=== PATIENT | male | born 1995 ===

== ENCOUNTER 2017-10-11 22:14 | Emergency (ER) | payer OTHER ==
[2017-10-11 22:44] VITALS: BP 122/64; PULSE 108; RESP 18; TEMP 98.9; O2SAT 97
--- NOTE | 2017-10-11 23:51 | ED PDOC ---
Lower Extremity Pain/Injury Time Seen by Provider: 10/11/17 22:26 Chief Complaint (Nursing): Lower Extremity Problem/Injury Chief Complaint (Provider): Left foot pain, crush injury History Per: Patient History/Exam Limitations: no limitations Onset/Duration Of Symptoms: Mins Current Symptoms Are (Timing): Still Present Severity: Moderate Pain Scale Rating Of: 5 Additional Complaint(s): Pt states he was using a wendy at work and it slipped crushing his left foot. PT reports swelling and pain. Pt denies numbness/tingling. No similar in the past. Past Medical History Reviewed: Historical Data, Nursing Documentation, Vital Signs Vital Signs: Last Vital Signs Temp 98.9 F 10/11/17 22:43 Pulse 108 H 10/11/17 22:43 Resp 18 10/11/17 22:43 BP 122/64 10/11/17 22:43 Pulse Ox 97 10/11/17 22:43 - Medical History PMH: No Chronic Diseases - Surgical History Surgical History: No Surg Hx - Family History Family History: States: No Known Family Hx - Living Arrangements Living Arrangements: With Family - Social History Current smoker - smoking cessation education provided: No - Home Medications Home Medications: Ambulatory Orders Medication Instructions Recorded Acetaminophen [Acetaminophen Extra 1,000 mg PO BID #40 tablet 10/11/17 Strength] Ibuprofen [Motrin Tab] 800 mg PO BID PRN #20 tab 10/11/17 - Allergies Allergies/Adverse Reactions: Allergies Allergy/AdvReac Type Severity Reaction Status Date / Time No Known Allergies Allergy Verified 10/11/17 22:48 - ECG O2 Sat by Pulse Oximetry: 97 Disposition - Clinical Impression Clinical Impression: Metatarsal bone fracture - Patient ED Disposition Is Patient to be Admitted: No Counseled Patient/Family Regarding: Diagnosis, Need For Followup, Rx Given - Disposition Referrals: [facility] [Outside] Disposition: Routine/Home Disposition Time: 23:52 Condition: GOOD Additional Instructions: Please ask for podiatry clinic or clinic which specializes in feet. Also inform them you are calling to see Dr. Nye in the clinic at [facility]. Prescriptions: Acetaminophen [Acetaminophen Extra Strength] 1,000 mg PO BID #40 tablet Ibuprofen [Motrin Tab] 800 mg PO BID PRN #20 tab PRN Reason: Pain Instructions: Foot Fracture in Adults (ED) Print Language: DIVEHI
--- NOTE | 2017-10-12 00:17 | CP.PCM.CON ---
History of Present Illness - History of Present Illness History of Present Illness: 22 year old male seen at bedside after suffering work place trauma earlier this evening. While loading pallets one fell on top of foot. Pt was able to bear wieght immediately after though reports it became more painful and difficult as time went on due to swelling. Pt reports pain and swellling remains localized to forefoot. Pt grades current pain level a 4/10. Pt has no other pedal complaints. Pt denies recent f/c/cp/sob/n/v, dizzyness. PMH: Denies remarkable medical history. PSH: Pt denies surgical history All: NKDA> Review of Systems - Review of Systems All systems: reviewed and no additional remarkable complaints except Past Patient History - Past Social History Smoking Status: Former Smoker - PSYCHIATRIC Hx Substance Use: No - SURGICAL HISTORY Hx Surgeries: No - ANESTHESIA Hx Anesthesia: No Meds Home Medications: Home Medication List Medication Instructions Recorded Confirmed Type Acetaminophen [Acetaminophen Extra 1,000 mg PO BID #40 tablet 10/11/17 Rx Strength] Ibuprofen [Motrin Tab] 800 mg PO BID PRN #20 tab 10/11/17 Rx Allergies/Adverse Reactions: Allergies Allergy/AdvReac Type Severity Reaction Status Date / Time No Known Allergies Allergy Verified 10/11/17 22:48 Physical Exam - Constitutional Appears: Well, Non-toxic, No Acute Distress - Extremities Exam Additional comments: Left lower extremity focused. Vasc: DP/PT pulses palpable 2/4 b/l. Skin temperature runs warm to warm from proximal to distal, within normal limits. CFT < 3 seconds to all digits b/l. Pedal hair growth appreciated. Neuro: Epicritic and protective sensation grossly intact. Derm: Dorsal central forefoot noted to have mild ecchymosis. This stie is absent erythema and acute signs of infection. No open lesions, macerations, xerosis, or abnormal growths noted. MSK: Non-pitting edema noted to central forefoot. Tenderness to palpation along 2nd and 3rd metatarsal head region. Pedal muscle strenght graded 5/5 on inversion, eversion, dorsiflexion and plantarflexion of foot. Pt has limited 2nd and 3rd digit MTPJ ROM secondary to guarding and swelling. - Neurological Exam Neurological exam: Alert, Oriented x3 - Psychiatric Exam Psychiatric exam: Normal Affect, Normal Mood Results - Vital Signs Recent Vital Signs: Last Vital Signs Temp 98.9 F 10/11/17 22:43 Pulse 108 H 10/11/17 22:43 Resp 18 10/11/17 22:43 BP 122/64 10/11/17 22:43 Pulse Ox 97 10/11/17 23:57 Assessment & Plan - Assessment and Plan (Free Text) Assessment: 22 year old male woth left 3rd metatarsal incomplete nondisplaced neck fracture Plan: Pt seen and evaluated. Chart labs, and vitals reviewed. Discussed with attending, Dr Howell, who endorsed the following plan X-rays reviewed. Pt to remain nonweight bearing to left foot in posterior splint. Analgesic control via Ibuprofen and tylenol. Pt to followup with Dr. Howell in [facility] Podiatry clinic within 10 days for potential transition to post-op shoe. Pt verbalized understanding of above. - Date & Time Date: 10/12/17 Time: 11:45
--- NOTE | 2017-10-12 10:07 | RAD ---
PROCEDURE: Left Foot Radiographs. HISTORY: left foot pain, crush injury COMPARISON: None. FINDINGS: BONES: There is a questionable fracture of the distal metaphysis of the 3rd metatarsal bone. This seen in frontal and oblique views only. 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 JOINTS: Normal. SOFT TISSUES: Prominent forefoot dorsal greater than plantar soft tissue edema identified. OTHER FINDINGS: None. IMPRESSION: There is a questionable fracture of the distal metaphysis of the 3rd metatarsal bone. Clinically correlate further. Prominent dorsal soft edema is seen.
== END 2017-10-12 00:14 | disposition home or self-care (01) ==
LOC: H.ER 22:14
DX: S92.302A Fracture of unspecified metatarsal bone(s), left foot, initial encounter for closed fracture (principal); W23.0XXA Caught, crushed, jammed, or pinched between moving objects, initial encounter; Y99.0 Civilian activity done for income or pay; Z87.891 Personal history of nicotine dependence

== ENCOUNTER 2017-10-14 18:55 | Emergency (ER) | payer OTHER ==
[2017-10-14 19:25] VITALS: BP 127/77; PULSE 78; RESP 20; TEMP 98.6; O2SAT 100
--- NOTE | 2017-10-14 19:44 | ED PDOC ---
Lower Extremity Pain/Injury Time Seen by Provider: 10/14/17 19:36 Chief Complaint (Nursing): Lower Extremity Problem/Injury Chief Complaint (Provider): Bleeding from splint History Per: Patient History/Exam Limitations: no limitations Onset/Duration Of Symptoms: Days (x1) Current Symptoms Are (Timing): Still Present Additional Complaint(s): Mehrdad Akhtar is a 22 y/o male who presents for evaluation of bleeding from under his splint located on his left foot. Denies any associated pain, numbness, or paresthesias. Patient reports he initially injured the foot after a pallet fell on top of it while at work. He was seen here on 10/11/17, diagnosed with left 3rd metatarsal nondisplaced neck fracture, and placed in a posterior splint with crutches given after podiatry evaluation. Today, when he reached into the splint he noticed blood on the foot. He denies any blood on his finger after reaching under the splint. He notes he called the number given to him to follow up with the podiatry clinic in [place], but states no one answered. PMD: None Past Medical History Reviewed: Historical Data, Nursing Documentation, Vital Signs Vital Signs: Last Vital Signs Temp 98.6 F 10/14/17 19:23 Pulse 78 10/14/17 19:23 Resp 20 10/14/17 19:23 BP 127/77 10/14/17 19:23 Pulse Ox 100 10/14/17 19:23 - Medical History PMH: No Chronic Diseases - Surgical History Surgical History: No Surg Hx - Family History Family History: States: Unknown Family Hx - Social History Ex-Smoker (has not smoked in the last 12 months): No - Home Medications Home Medications: Ambulatory Orders Medication Instructions Recorded Acetaminophen [Acetaminophen Extra 1,000 mg PO BID #40 tablet 10/11/17 Strength] Ibuprofen [Motrin Tab] 800 mg PO BID PRN #20 tab 10/11/17 - Allergies Allergies/Adverse Reactions: Allergies Allergy/AdvReac Type Severity Reaction Status Date / Time No Known Allergies Allergy Verified 10/11/17 22:48 Review of Systems ROS Statement: Except As Marked, All Systems Reviewed And Found Negative Musculoskeletal: Positive for: Other (Blood from splint). Negative for: Foot Pain Neurological: Negative for: Numbness (or paresthesia) Physical Exam - Reviewed Nursing Documentation Reviewed: Yes Vital Signs Reviewed: Yes - Physical Exam Appears: Positive for: Well, Non-toxic, No Acute Distress Head Exam: Positive for: ATRAUMATIC, NORMAL INSPECTION, NORMOCEPHALIC Skin: Positive for: Normal Color, Warm, Dry Eye Exam: Positive for: Normal appearance Extremity: Positive for: Other (Posterior splint in place on left lower extremity. Small blister noted at the dorsum of the 2nd metatarsal region, with no bleeding noted. (+) edema over the dorsum of the foot with scattered ecchymosis ). Negative for: Tenderness Neurologic/Psych: Positive for: Alert, Oriented (x3) - ECG O2 Sat by Pulse Oximetry: 100 (RA) Pulse Ox Interpretation: Normal Medical Decision Making Medical Decision Making: Time: 19:55 Initial Plan: --Paged podiatry for consult Case discussed with Dr. Mandy Astorga, podiatry resident, who requests splint be removed. Splint removed. No blood or open wounds noted to the left foot. Small blister noted on dorsum of foot between 1st and 2nd metatarsals. She advises posterior orthoglass splint be replaced and patient follow up with podiatry clinic in as instructed. Phone number provided: [phone]. Posterior orthoglass splint placed by VIANNEY. Patient instructed to f/u with podiatry clinic as instructed. Phone number provided. He expresses understanding and agreement. Scribe Attestation: Documented by Jennifer Bear, acting as a scribe for Naida Smith PA-C Provider Scribe Attestation: All medical record entries made by the Scribe were at my direction and personally dictated by me. I have reviewed the chart and agree that the record accurately reflects my personal performance of the history, physical exam, medical decision making, and the department course for this patient. I have also personally directed, reviewed, and agree with the discharge instructions and disposition. Procedures - Splinting Splint: posterior orthoglass splint. Disposition - Clinical Impression Clinical Impression: Metatarsal fracture - Patient ED Disposition Is Patient to be Admitted: No Counseled Patient/Family Regarding: Diagnosis, Need For Followup, Rx Given - Disposition Referrals: Lyndsay Nye DPM [Staff Provider] - Disposition: Routine/Home Disposition Time: 20:49 Condition: STABLE Additional Instructions: Follow up with podiatry clinic. [phone]. Instructions: Foot Fracture in Adults (ED) Forms: [facility] (Icelandic) Print Language: ROMANSH
== END 2017-10-14 21:12 | disposition home or self-care (01) ==
LOC: H.ER 18:55
DX: Z47.89 Encounter for other orthopedic aftercare (principal)

== ENCOUNTER 2018-06-27 14:56 | Day surgery (SDC) | payer OTHER ==
--- NOTE | 2018-06-27 15:21 | ED PDOC ---
HPI: Abdomen Time Seen by Provider: 06/27/18 15:13 Chief Complaint (Nursing): Abdominal Pain Chief Complaint (Provider): Abdominal Pain History Per: Patient History/Exam Limitations: no limitations Onset/Duration Of Symptoms: Days (x2) Current Symptoms Are (Timing): Still Present Additional Complaint(s): 23 y/o male with no significant PMHx presenting for evaluation of abdominal pain x2 days. Patient states pain began yesterday and has been constant. He reports pain is present in the entire abdominal area as well as multiple episodes of vomiting. He denies any fever, chills, chest pain, shortness of breath, cough, back pain, dietary changes, dysuria, hematuria, retention, frequency, testicular pain or diarrhea. PMD: None Past Medical History Reviewed: Historical Data, Nursing Documentation, Vital Signs Vital Signs: Last Vital Signs Temp 99.4 F 06/27/18 15:49 Pulse 89 06/27/18 15:03 Resp 16 06/27/18 15:03 BP 116/64 06/27/18 15:03 Pulse Ox 100 06/27/18 16:53 - Medical History PMH: No Chronic Diseases - Surgical History Surgical History: No Surg Hx - Family History Family History: States: Unknown Family Hx - Home Medications Home Medications: Ambulatory Orders Medication Instructions Recorded Acetaminophen [Acetaminophen Extra 1,000 mg PO BID #40 tablet 10/11/17 Strength] Ibuprofen [Motrin Tab] 800 mg PO BID PRN #20 tab 10/11/17 - Allergies Allergies/Adverse Reactions: Allergies Allergy/AdvReac Type Severity Reaction Status Date / Time No Known Allergies Allergy Verified 10/11/17 22:48 Review of Systems ROS Statement: Except As Marked, All Systems Reviewed And Found Negative Constitutional: Negative for: Fever, Chills Cardiovascular: Negative for: Chest Pain Respiratory: Negative for: Cough, Shortness of Breath Gastrointestinal: Positive for: Nausea, Vomiting, Abdominal Pain. Negative for : Diarrhea Genitourinary Male: Negative for: Dysuria, Frequency, Incontinence, Hematuria, Scrotal Pain Physical Exam - Reviewed Nursing Documentation Reviewed: Yes Vital Signs Reviewed: Yes - Physical Exam Appears: Positive for: Non-toxic, No Acute Distress Head Exam: Positive for: ATRAUMATIC, NORMAL INSPECTION, NORMOCEPHALIC Skin: Positive for: Normal Color, Warm, Dry. Negative for: Rash Eye Exam: Positive for: EOMI, Normal appearance, PERRL ENT: Positive for: Normal ENT Inspection Neck: Positive for: Normal, Painless ROM, Supple Cardiovascular/Chest: Positive for: Regular Rate, Rhythm. Negative for: Murmur Respiratory: Positive for: Normal Breath Sounds. Negative for: Respiratory Distress Gastrointestinal/Abdominal: Positive for: Soft, Tenderness (mild diffuse tenderness) Back: Positive for: Normal Inspection. Negative for: L CVA Tenderness, R CVA Tenderness, Vertebral Tenderness Extremity: Positive for: Normal ROM. Negative for: Pedal Edema, Deformity Neurologic/Psych: Positive for: Alert, Oriented (x3). Negative for: Motor/ Sensory Deficits - Laboratory Results Result Diagrams: 06/27/18 15:30 06/27/18 15:30 Interpretation Of Abn Labs: 18.6 wbc, 3.5 k - ECG O2 Sat by Pulse Oximetry: 100 (RA) Pulse Ox Interpretation: Normal - Progress ED Course And Treament: 1921: Stable. Spoke with Dr. Lu. Will consult. Spoke with Dr. Pizano. Will admit and give further orders when pt. reaches floor. Medical Decision Making Medical Decision Makin:25 Impression: Abdominal pain Plan: -CT abdomen and pelvis w/ IV contrast -CMP -Lipase -Urine dip -CBC w/ differential -PTT/PT -1LNS -Iohexol 50ml PO -Toradol 15mg IVP -Zofran 4mg IV -Reevaluation Scribe Attestation: Documented by Amari Kidd, acting as a scribe for Mike Augustine MD. Provider Scribe Attestation: All medical record entries made by the Scribe were at my direction and personally dictated by me. I have reviewed the chart and agree that the record accurately reflects my personal performance of the history, physical exam, medical decision making, and the department course for this patient. I have also personally directed, reviewed, and agree with the discharge instructions and disposition. Disposition - Clinical Impression Clinical Impression: Appendicitis - Patient ED Disposition Is Patient to be Admitted: Yes Counseled Patient/Family Regarding: Studies Performed, Diagnosis - Disposition Disposition Time: 19:23 Condition: FAIR - Pt Status Changed To: Hospital Disposition Of: Inpatient - Admit Certification Admit to Inpatient:: After my assessment, the patient will require hospitalization for at least two midnights. This is because of the severity of symptoms shown, intensity of services needed, and/or the medical risk in this patient being treated as an outpatient. - POA Present On Arrival: None
[2018-06-27] MEDS ORDERED: Sodium Chloride 0.9% 1,000 ML IV STA (15:23)
[2018-06-27] MEDS ORDERED: Iohexol 240 (50 ml) PO ONE (15:23)
[2018-06-27] MEDS ORDERED: Iohexol 240 (50 ml) ONE (15:35)
[2018-06-27 15:40] LABS: BASO % 0.2 % (0.0-2.0); EOS % 0.2 % (0.0-4.0); LYMPH # 0.9 K/uL (1.0-4.3); MEAN CELL VOLUME 85.3 fl (80.0-94.0); MEAN CORPUSCULAR HEMOGLOBIN 28.2 pg (27.0-31.0); MEAN CORPUSCULAR HGB CONC 33.1 g/dL (33.0-37.0); MONO # 1.3 K/uL (0.0-0.8); NEUT # 16.3 K/uL (1.8-7.0); NEUT % 87.6 % (50.0-75.0); PLATELET COUNT 250 K/uL (130-400); RBC 5.33 Mil/uL (4.40-5.90); RED CELL DISTRIBUTION WIDTH 13.2 % (11.5-14.5); WHITE BLOOD COUNT 18.6 K/uL (4.8-10.8)
[2018-06-27 15:43] LABS: INR 1.2; PROTHROMBIN TIME 13.7 Seconds (9.8-13.1)
[2018-06-27 15:45] LABS: PARTIAL THROMBOPLASTIN TIME 35.6 Seconds (25.6-37.1)
[2018-06-27 16:16] LABS: ALB/GLOB RATIO 1.4 (1.0-2.1); ALBUMIN 4.7 g/dL (3.5-5.0); ALT/SGPT 23 U/L (21-72); AST/SGOT 22 U/L (17-59); BLOOD UREA NITROGEN 10 mg/dl (9-20); CALCIUM 9.5 mg/dL (8.4-10.2); GFR AFRICAN-AMERICAN > 60; GFR NON-AFRICAN AMERICAN > 60; LIPASE 32 U/L (23-300)
[2018-06-27] MEDS ORDERED: Piperacillin/Tazobact 3.375 GM in Sodium Chloride 0.9% 100 ML IV STA (16:53)
[2018-06-27] MEDS ORDERED: Piperacillin/Tazobact 3.375 gm Inj IVPB ONE (16:57)
[2018-06-27 17:01] LABS: BANDS 1 % (0-2); EOSINOPHIL 1 % (0-7); LYMPHOCYTE 6 % (20-50); MONOCYTE 7 % (0-10); NEUTROPHIL 85 % (42-75); PLATELET ESTIMATE NORMAL (NORMAL); TOTAL CELLS COUNTED 100
[2018-06-27] MEDS ORDERED: Iohexol 300 100 ML IJ ONE (18:33)
[2018-06-27] MEDS ORDERED: Sodium Chloride 0.9% 50 ML IV ONE (18:33)
[2018-06-27 19:34] LABS: VENOUS BLOOD GAS BASE EXCESS -0.4 mmol/L (0.0-2.0); VENOUS BLOOD GAS PCO2 48 mmHg (40-60); VENOUS BLOOD GAS PO2 29 mm/Hg (30-55); VENOUS BLOOD PH 7.34 (7.32-7.43)
[2018-06-27] MEDS ORDERED: Succinylcholine 200 mg/10 ml Inj IV ONE (20:47)
[2018-06-27] MEDS ORDERED: Midazolam 2 MG/2 ML VIAL ONE (20:47)
[2018-06-27] MEDS ORDERED: Propofol 10 mg/ml Inj (20 ML) ONE (20:47)
[2018-06-27] MEDS ORDERED: Lidocaine 4% (Laryng-O-Jet) Kit MM ONE (20:48)
[2018-06-27] MEDS ORDERED: Lidocaine 1% 5ml Abboject IV ONE (20:48)
[2018-06-27] MEDS ORDERED: Neostigmine 1:1000 (1 mg/ml) Inj ONE (20:48)
[2018-06-27] MEDS ORDERED: Rocuronium 10 mg/ml (5 ml) ONE (20:50)
--- NOTE | 2018-06-27 21:05 | CP.PCM.CON ---
History of Present Illness - History of Present Illness History of Present Illness: General surgery consult note for Dr. Jorge Grey, PGY-2 Pt S & E at bedside with family at 2014 23M w/no sig PMH consulted for RLQ ab pain x 1 day. Pt reports pain started periumbilical one day [employer], got better, then recurred AM of day of evaluation. Over course of day, pain re-located to RLQ and worsened. Pain is sharp, severe , constant today, non radiating. Admits to nausea, emesis x 3 (nb, nb food stuff). Unable to eat after breakfast. Denies ever having before, F & C, constipation, diarrhea, changes in urinary habits, chest pain, SOB, other complaints. In ED- Afebrile, leukocytosis of 18.6. CT ab with enlarged appendix, surrounding inflammation consistent with acute appendicitis PMH: poor eyesight PSH: Denies All: NKDA SH: Denies ETOH, tobacco or illicit drug use FH: family history of appendicitis in father, brother PMD: Denies Review of Systems - Review of Systems All systems: reviewed and no additional remarkable complaints except - Constitutional Constitutional: Anorexia. absent: Chills, Fever - EENT Eyes: Loss of Vision (chronic at a distance) Nose/Mouth/Throat: absent: Sore Throat - Cardiovascular Cardiovascular: absent: Chest Pain - Respiratory Respiratory: absent: Cough - Gastrointestinal Gastrointestinal: Abdominal Pain, Nausea, Vomiting. absent: Bloating, Change in Bowel Habits, Change in Stool Character, Constipation, Diarrhea - Genitourinary Genitourinary: absent: Difficulty Urinating, Dysuria, Flank Pain - Musculoskeletal Musculoskeletal: absent: Back Pain, Numbness, Tingling - Integumentary Integumentary: absent: Rash - Neurological Neurological: absent: Weakness - Psychiatric Psychiatric: Change in Appetite (decreased) Past Patient History - Past Medical History & Family History Past Medical History?: No - Past Social History Smoking Status: Never Smoked - PSYCHIATRIC Hx Emotional Abuse: No Hx Physical Abuse: No Hx Substance Use: No - SURGICAL HISTORY Hx Surgeries: No - ANESTHESIA Hx Anesthesia: No Meds Allergies/Adverse Reactions: Allergies Allergy/AdvReac Type Severity Reaction Status Date / Time No Known Allergies Allergy Verified 10/11/17 22:48 Physical Exam - Constitutional Appears: Non-toxic, No Acute Distress - Head Exam Head Exam: ATRAUMATIC, NORMAL INSPECTION, NORMOCEPHALIC - Eye Exam Eye Exam: EOMI, Normal appearance - ENT Exam ENT Exam: Mucous Membranes Moist, Normal Exam - Neck Exam Neck exam: Positive for: Full Rom, Normal Inspection - Respiratory Exam Respiratory Exam: Clear to Auscultation Bilateral, NORMAL BREATHING PATTERN - Cardiovascular Exam Cardiovascular Exam: REGULAR RHYTHM, +S1, +S2 - GI/Abdominal Exam GI & Abdominal Exam: Guarding (RLQ), Normal Bowel Sounds, Soft, Tenderness (RLQ , + McBurney's + Rovsings). absent: Distended, Firm, Hernia - Extremities Exam Extremities exam: Positive for: full ROM, normal inspection - Neurological Exam Neurological exam: Alert, CN II-XII Intact, Oriented x3 - Psychiatric Exam Psychiatric exam: Normal Affect, Normal Mood - Skin Skin Exam: Dry, Intact, Normal Color, Warm Results - Vital Signs Recent Vital Signs: Last Vital Signs Temp 99.5 F 06/27/18 20:06 Pulse 74 06/27/18 20:06 Resp 18 06/27/18 20:06 BP 112/47 L 06/27/18 20:06 Pulse Ox 100 06/27/18 20:06 - Labs Result Diagrams: 06/27/18 15:30 06/27/18 15:30 Labs: Laboratory Results - last 24 hr 06/27/18 06/27/18 06/27/18 15:30 15:30 15:30 WBC 18.6 H RBC 5.33 Hgb 15.0 Hct 45.4 MCV 85.3 MCH 28.2 MCHC 33.1 RDW 13.2 Plt Count 250 MPV 10.0 Neut % (Auto) 87.6 H Lymph % (Auto) 5.0 L Pike % (Auto) 7.0 Eos % (Auto) 0.2 Baso % (Auto) 0.2 Neut # (Auto) 16.3 H Lymph # (Auto) 0.9 L Pike # (Auto) 1.3 H Eos # (Auto) 0.0 Baso # (Auto) 0.0 Neutrophils % (Manual) 85 H Band Neutrophils % 1 Lymphocytes % (Manual) 6 L Monocytes % (Manual) 7 Eosinophils % (Manual) 1 Platelet Estimate Normal PT 13.7 H INR 1.2 APTT 35.6 pO2 VBG pH VBG pCO2 VBG HCO3 VBG Total CO2 VBG O2 Sat (Calc) VBG Base Excess VBG Potassium Glucose Lactate FiO2 Sodium 138 Potassium 3.5 L Chloride 101 Carbon Dioxide 25 Anion Gap 16 BUN 10 Creatinine 0.8 Est GFR ( Amer) > 60 Est GFR (Non-Af Amer) > 60 Random Glucose 110 Calcium 9.5 Total Bilirubin 1.2 AST 22 ALT 23 Alkaline Phosphatase 81 Total Protein 8.1 Albumin 4.7 Globulin 3.4 Albumin/Globulin Ratio 1.4 Lipase 32 Venous Blood Potassium 06/27/18 19:26 WBC RBC Hgb Hct MCV MCH MCHC RDW Plt Count MPV Neut % (Auto) Lymph % (Auto) Pike % (Auto) Eos % (Auto) Baso % (Auto) Neut # (Auto) Lymph # (Auto) Pike # (Auto) Eos # (Auto) Baso # (Auto) Neutrophils % (Manual) Band Neutrophils % Lymphocytes % (Manual) Monocytes % (Manual) Eosinophils % (Manual) Platelet Estimate PT INR APTT pO2 29 L VBG pH 7.34 VBG pCO2 48 VBG HCO3 23.3 VBG Total CO2 27.4 VBG O2 Sat (Calc) 60.3 VBG Base Excess -0.4 L VBG Potassium 3.4 L Glucose 118 H Lactate 1.3 FiO2 21.0 Sodium 133.0 Potassium Chloride 100.0 Carbon Dioxide Anion Gap BUN Creatinine Est GFR ( Amer) Est GFR (Non-Af Amer) Random Glucose Calcium Total Bilirubin AST ALT Alkaline Phosphatase Total Protein Albumin Globulin Albumin/Globulin Ratio Lipase Venous Blood Potassium 3.4 L Assessment & Plan - Assessment and Plan (Free Text) Assessment: 23M w/acute appendicitis Plan: NPO IVF ABx Pain control Plan for OR today Consent in chart Admit to medicine DW attending Matilda, PGY-2 - Date & Time Date: 06/27/18 Time: 20:30
[2018-06-27] MEDS ORDERED: HYDROmorphone 0.5 mg/0.5 ml ISec IVP PRN ×2 (21:08→22:01)
[2018-06-27] MEDS ORDERED: Lactated Ringer's 1,000 ML IV SCH (21:15)
[2018-06-27] MEDS ORDERED: Bupivacaine 0.5% Inj(30mL) IJ ONE ×2 (21:40→21:48)
[2018-06-27] MEDS ORDERED: Lactated Ringer's 1,000 ML IV ONE (21:41)
--- NOTE | 2018-06-27 22:03 | PCM.SURG1 ---
Surgeon's Initial Post Op Note - Surgeon's Notes Surgeon: Dr. Devyn Lu Lead Cargo Mover: Carey Grey, PGY-2 Type of Anesthesia: General Endo Anesthesia Administered By: Dr. Thomas Pre-Operative Diagnosis: Acute appendicitis Operative Findings: See op report Post-Operative Diagnosis: Non perforated appendicitis Operation Performed: Laparoscopic appendectomy Specimen/Specimens Removed: Appendix Estimated Blood Loss: EBL {In ML}: 2 Blood Products Given: N/A Drains Used: No Drains Post-Op Condition: Good Date of Surgery/Procedure: 06/27/18 Time of Surgery/Procedure: 22:03
[2018-06-27] MEDS: Piperacillin/Tazobact 3.375 GM in Sodium Chloride 0.9% 100 ML IVPB SCH (22:16)
[2018-06-27] MEDS: oxyCODONE 5 mg Immediate Release Tab PO PRN (23:34)
[2018-06-28] MEDS: Lactated Ringer's 1,000 ML IV SCH ×2 (00:47→02:29)
[2018-06-28] MEDS: Potassium Chloride 20 mEq 100 ML IVPB SCH ×2 (00:48→02:29)
[2018-06-28] MEDS: oxyCODONE 10 mg Immediate Release Tab PO PRN ×2 (03:03→10:37)
[2018-06-28 03:15] VITALS: RESP 18
[2018-06-28] MEDS: Piperacillin/Tazobact 3.375 GM in Sodium Chloride 0.9% 100 ML IVPB SCH ×2 (03:54→10:12)
[2018-06-28] MEDS ORDERED: Benzocaine/Menthol (Cepacol) Lozenge PO PRN (05:59)
[2018-06-28] MEDS: oxyCODONE 5 mg Immediate Release Tab PO PRN ×2 (07:07→14:36)
[2018-06-28 07:50] LABS: BASO % 0.3 % (0.0-2.0); EOS % 0.2 % (0.0-4.0); HEMOGLOBIN 13.4 g/dL (12.0-18.0); LYMPH # 1.7 K/uL (1.0-4.3); LYMPH % 17.7 % (20.0-40.0); MEAN CORPUSCULAR HEMOGLOBIN 28.6 pg (27.0-31.0); MEAN CORPUSCULAR HGB CONC 33.2 g/dL (33.0-37.0); MEAN PLATELET VOLUME 9.8 fl (7.2-11.7); MONO # 0.8 K/uL (0.0-0.8); MONO % 8.2 % (0.0-10.0); NEUT % 73.6 % (50.0-75.0); NRBC % 0.1 % (0.0-0.0); RBC 4.69 Mil/uL (4.40-5.90); RED CELL DISTRIBUTION WIDTH 13.5 % (11.5-14.5); WHITE BLOOD COUNT 9.6 K/uL (4.8-10.8)
--- NOTE | 2018-06-28 08:01 | CP.PCM.PN ---
Subjective - Date & Time of Evaluation Date of Evaluation: 06/28/18 Time of Evaluation: 07:59 - Subjective Subjective: General surgery progress note for Dr. Jorge Grey, PGY-2 Pt S & E at bedside at 0710 Pt reports some pain at incision sites. Voided overnight. Denies N & V, F & C. Tolerated fluids. Objective - Vital Signs/Intake and Output Vital Signs (last 24 hours): Temp Pulse Resp BP Pulse Ox 97.9 F 60 18 105/65 99 06/28/18 07:42 06/28/18 07:42 06/28/18 07:42 06/28/18 07:42 06/28/18 07:42 Intake and Output: 06/28/18 06/28/18 06:59 18:59 Intake Total 850 Balance 850 - Medications Medications: Current Medications Acetaminophen (Tylenol 325mg Tab) 650 mg PO Q4 PRN PRN Reason: Pain, Mild (1-3) Benzocaine/Menthol (Cepacol Sore Throat) 1 augusto PO Q2 PRN PRN Reason: Sore Throat Piperacillin Sod/Tazobactam (Sod 3.375 gm/ Sodium Chloride) 100 mls @ 100 mls/ hr IVPB Q6 SHUN PRN Reason: Protocol Last Admin: 06/28/18 03:54 Dose: 100 mls/hr Ondansetron HCl (Zofran Inj) 4 mg IVP Q6 PRN PRN Reason: Nausea/Vomiting Oxycodone HCl (Oxycodone Immediate Release Tab) 5 mg PO Q6 PRN PRN Reason: Pain, moderate (4-7) Last Admin: 06/28/18 07:07 Dose: 5 mg Oxycodone HCl (Oxycodone Immediate Release Tab) 10 mg PO Q6 PRN PRN Reason: Pain, severe (8-10) Last Admin: 06/28/18 03:03 Dose: 10 mg - Labs Labs: 06/27/18 15:30 06/27/18 15:30 PT 13.7 Seconds (9.8-13.1) H 06/27/18 15:30 INR 1.2 06/27/18 15:30 APTT 35.6 Seconds (25.6-37.1) 06/27/18 15:30 - Constitutional Appears: Non-toxic, No Acute Distress - Head Exam Head Exam: ATRAUMATIC, NORMAL INSPECTION, NORMOCEPHALIC - Eye Exam Eye Exam: EOMI, Normal appearance - ENT Exam ENT Exam: Mucous Membranes Moist, Normal Exam - Neck Exam Neck Exam: Full ROM, Normal Inspection - Respiratory Exam Respiratory Exam: Clear to Ausculation Bilateral, NORMAL BREATHING PATTERN - Cardiovascular Exam Cardiovascular Exam: REGULAR RHYTHM, +S1, +S2 - GI/Abdominal Exam GI & Abdominal Exam: Soft, Tenderness (over umbilical, suprapubic and RLQ incision sites- glue in place, no erythema, fluctuance, induration or drainage noted), Normal Bowel Sounds. absent: Distended, Firm, Guarding, Rigid - Extremities Exam Extremities Exam: Normal Inspection - Neurological Exam Neurological Exam: Alert, Awake, CN II-XII Intact, Oriented x3 - Psychiatric Exam Psychiatric exam: Normal Affect, Normal Mood - Skin Skin Exam: Dry, Normal Color, Warm Assessment and Plan - Assessment and Plan (Free Text) Assessment: 23M POD#1 s/p lap appy Plan: Pain control Regular diet OOBTC Encourage IS Ambulate D/c IVF Cleared for d/c home from surgical standpoint if labs improving Post op instructions rendered at bedside Will NORAH attending Matilda, PGY-2
[2018-06-28 08:11] LABS: ALB/GLOB RATIO 1.4 (1.0-2.1); ALBUMIN 3.9 g/dL (3.5-5.0); ALT/SGPT 19 U/L (21-72); AST/SGOT 25 U/L (17-59); BLOOD UREA NITROGEN 7 mg/dl (9-20); CALCIUM 8.9 mg/dL (8.4-10.2); GFR AFRICAN-AMERICAN > 60; GFR NON-AFRICAN AMERICAN > 60
--- NOTE | 2018-06-28 08:32 | CT ---
Date of service: 06/27/2018 PROCEDURE: CT Abdomen and Pelvis with contrast HISTORY: abd pain COMPARISON: None. TECHNIQUE: Contrast dose: Radiation dose: Total exam DLP = mGy-cm. This CT exam was performed using one or more of the following dose reduction techniques: Automated exposure control, adjustment of the mA and/or kV according to patient size, and/or use of iterative reconstruction technique. FINDINGS: LOWER THORAX: Unremarkable. LIVER: Unremarkable. No gross lesion or ductal dilatation. GALLBLADDER AND BILE DUCTS: Unremarkable. PANCREAS: Unremarkable. No gross lesion or ductal dilatation. SPLEEN: Unremarkable. ADRENALS: Unremarkable. No mass. KIDNEYS AND URETERS: Unremarkable. No hydronephrosis. No solid mass. VASCULATURE: Unremarkable. No aortic aneurysm. BOWEL: Unremarkable. No obstruction. No gross mural thickening. APPENDIX: Thickened and mildly enhancing appendix consistent with acute appendicitis. PERITONEUM: Unremarkable. No free fluid. No free air. LYMPH NODES: Unremarkable. No enlarged lymph nodes. BLADDER: Unremarkable. REPRODUCTIVE: Unremarkable. BONES: No acute fracture. OTHER FINDINGS: None. IMPRESSION: Thickened and mildly enhancing appendix consistent with acute appendicitis.
[2018-06-28 11:20] VITALS: BP 100/57; PULSE 67; TEMP 98.7; O2SAT 98
--- NOTE | 2018-06-28 13:39 | CP.PCM.HP ---
Past Patient History - Past Medical History & Family History Past Medical History?: No - Past Social History Smoking Status: Never Smoked - PSYCHIATRIC Hx Emotional Abuse: No Hx Physical Abuse: No Hx Substance Use: No - SURGICAL HISTORY Hx Surgeries: No - ANESTHESIA Hx Anesthesia: No Meds Allergies/Adverse Reactions: Allergies Allergy/AdvReac Type Severity Reaction Status Date / Time No Known Allergies Allergy Verified 10/11/17 22:48 Results - Vital Signs Recent Vital Signs: Last Vital Signs Temp 98.7 F 06/28/18 11:19 Pulse 67 06/28/18 11:19 Resp 18 06/28/18 11:19 BP 100/57 L 06/28/18 11:19 Pulse Ox 98 06/28/18 11:19 - Labs Result Diagrams: 06/28/18 05:30 06/28/18 05:30 Labs: Laboratory Results - last 24 hr 06/27/18 06/27/18 06/27/18 15:30 15:30 15:30 WBC 18.6 H RBC 5.33 Hgb 15.0 Hct 45.4 MCV 85.3 MCH 28.2 MCHC 33.1 RDW 13.2 Plt Count 250 MPV 10.0 Neut % (Auto) 87.6 H Lymph % (Auto) 5.0 L [place] % (Auto) 7.0 Eos % (Auto) 0.2 Baso % (Auto) 0.2 Neut # (Auto) 16.3 H Lymph # (Auto) 0.9 L [place] # (Auto) 1.3 H Eos # (Auto) 0.0 Baso # (Auto) 0.0 Neutrophils % (Manual) 85 H Band Neutrophils % 1 Lymphocytes % (Manual) 6 L Monocytes % (Manual) 7 Eosinophils % (Manual) 1 Platelet Estimate Normal PT 13.7 H INR 1.2 APTT 35.6 pO2 VBG pH VBG pCO2 VBG HCO3 VBG Total CO2 VBG O2 Sat (Calc) VBG Base Excess VBG Potassium Glucose Lactate FiO2 Sodium 138 Potassium 3.5 L Chloride 101 Carbon Dioxide 25 Anion Gap 16 BUN 10 Creatinine 0.8 Est GFR ( Amer) > 60 Est GFR (Non-Af Amer) > 60 Random Glucose 110 Calcium 9.5 Phosphorus Magnesium Total Bilirubin 1.2 AST 22 ALT 23 Alkaline Phosphatase 81 Total Protein 8.1 Albumin 4.7 Globulin 3.4 Albumin/Globulin Ratio 1.4 Lipase 32 Venous Blood Potassium 06/27/18 06/28/18 06/28/18 19:26 05:30 05:30 WBC 9.6 RBC 4.69 Hgb 13.4 Hct 40.3 MCV 86.0 MCH 28.6 MCHC 33.2 RDW 13.5 Plt Count 236 MPV 9.8 Neut % (Auto) 73.6 Lymph % (Auto) 17.7 L [place] % (Auto) 8.2 Eos % (Auto) 0.2 Baso % (Auto) 0.3 Neut # (Auto) 7.0 Lymph # (Auto) 1.7 [place] # (Auto) 0.8 Eos # (Auto) 0.0 Baso # (Auto) 0.0 Neutrophils % (Manual) Band Neutrophils % Lymphocytes % (Manual) Monocytes % (Manual) Eosinophils % (Manual) Platelet Estimate PT INR APTT pO2 29 L VBG pH 7.34 VBG pCO2 48 VBG HCO3 23.3 VBG Total CO2 27.4 VBG O2 Sat (Calc) 60.3 VBG Base Excess -0.4 L VBG Potassium 3.4 L Glucose 118 H Lactate 1.3 FiO2 21.0 Sodium 133.0 142 Potassium 3.6 Chloride 100.0 102 Carbon Dioxide 28 Anion Gap 16 BUN 7 L Creatinine 0.9 Est GFR ( Amer) > 60 Est GFR (Non-Af Amer) > 60 Random Glucose 95 Calcium 8.9 Phosphorus 4.1 Magnesium 1.8 Total Bilirubin 1.7 H AST 25 ALT 19 L Alkaline Phosphatase 58 Total Protein 6.7 Albumin 3.9 Globulin 2.8 Albumin/Globulin Ratio 1.4 Lipase Venous Blood Potassium 3.4 L
--- NOTE | 2018-06-29 00:46 | CP.PCM.DIS ---
Provider - Provider Date of Admission: 06/27/18 19:24 Attending physician: Michoacano Pizano MD Time Spent in preparation of Discharge (in minutes): 25 Hospital Course - Lab Results Lab Results: Micro Results 06/27/18 16:40 Blood-Venous Blood Culture - Preliminary NO GROWTH AFTER 24 HOURS 06/27/18 16:40 Blood-Venous Blood Culture - Preliminary NO GROWTH AFTER 24 HOURS Most Recent Lab Values WBC 9.6 K/uL (4.8-10.8) 06/28/18 05:30 RBC 4.69 Mil/uL (4.40-5.90) 06/28/18 05:30 Hgb 13.4 g/dL (12.0-18.0) 06/28/18 05:30 Hct 40.3 % (35.0-51.0) 06/28/18 05:30 MCV 86.0 fl (80.0-94.0) 06/28/18 05:30 MCH 28.6 pg (27.0-31.0) 06/28/18 05:30 MCHC 33.2 g/dL (33.0-37.0) 06/28/18 05:30 RDW 13.5 % (11.5-14.5) 06/28/18 05:30 Plt Count 236 K/uL (130-400) 06/28/18 05:30 MPV 9.8 fl (7.2-11.7) 06/28/18 05:30 Neut % (Auto) 73.6 % (50.0-75.0) 06/28/18 05:30 Lymph % (Auto) 17.7 % (20.0-40.0) L 06/28/18 05:30 [place] % (Auto) 8.2 % (0.0-10.0) 06/28/18 05:30 Eos % (Auto) 0.2 % (0.0-4.0) 06/28/18 05:30 Baso % (Auto) 0.3 % (0.0-2.0) 06/28/18 05:30 Neut # (Auto) 7.0 K/uL (1.8-7.0) 06/28/18 05:30 Lymph # (Auto) 1.7 K/uL (1.0-4.3) 06/28/18 05:30 [place] # (Auto) 0.8 K/uL (0.0-0.8) 06/28/18 05:30 Eos # (Auto) 0.0 K/uL (0.0-0.7) 06/28/18 05:30 Baso # (Auto) 0.0 K/uL (0.0-0.2) 06/28/18 05:30 Neutrophils % (Manual) 85 % (42-75) H 06/27/18 15:30 Band Neutrophils % 1 % (0-2) 06/27/18 15:30 Lymphocytes % (Manual) 6 % (20-50) L 06/27/18 15:30 Monocytes % (Manual) 7 % (0-10) 06/27/18 15:30 Eosinophils % (Manual) 1 % (0-7) 06/27/18 15:30 Platelet Estimate Normal (NORMAL) 06/27/18 15:30 PT 13.7 Seconds (9.8-13.1) H 06/27/18 15:30 INR 1.2 06/27/18 15:30 APTT 35.6 Seconds (25.6-37.1) 06/27/18 15:30 pO2 29 mm/Hg (30-55) L 06/27/18 19:26 VBG pH 7.34 (7.32-7.43) 06/27/18 19:26 VBG pCO2 48 mmHg (40-60) 06/27/18 19:26 VBG HCO3 23.3 mmol/L 06/27/18 19:26 VBG Total CO2 27.4 mmol/L (22-28) 06/27/18 19:26 VBG O2 Sat (Calc) 60.3 % (40-65) 06/27/18 19:26 VBG Base Excess -0.4 mmol/L (0.0-2.0) L 06/27/18 19:26 VBG Potassium 3.4 mmol/L (3.6-5.2) L 06/27/18 19:26 Sodium 133.0 mmol/L (132-148) 06/27/18 19:26 Chloride 100.0 mmol/L (98-107) 06/27/18 19:26 Glucose 118 mg/dL (75-110) H 06/27/18 19:26 Lactate 1.3 mmol/L (0.7-2.1) 06/27/18 19:26 FiO2 21.0 % 06/27/18 19:26 Sodium 142 mmol/l (132-148) 06/28/18 05:30 Potassium 3.6 MMOL/L (3.6-5.0) 06/28/18 05:30 Chloride 102 mmol/L (98-107) 06/28/18 05:30 Carbon Dioxide 28 mmol/L (22-30) 06/28/18 05:30 Anion Gap 16 (10-20) 06/28/18 05:30 BUN 7 mg/dl (9-20) L 06/28/18 05:30 Creatinine 0.9 mg/dl (0.8-1.5) 06/28/18 05:30 Est GFR ( Amer) > 60 06/28/18 05:30 Est GFR (Non-Af Amer) > 60 06/28/18 05:30 Random Glucose 95 mg/dL (75-110) 06/28/18 05:30 Calcium 8.9 mg/dL (8.4-10.2) 06/28/18 05:30 Phosphorus 4.1 mg/dl (2.5-4.5) 06/28/18 05:30 Magnesium 1.8 MG/DL (1.6-2.3) 06/28/18 05:30 Total Bilirubin 1.7 mg/dl (0.2-1.3) H 06/28/18 05:30 AST 25 U/L (17-59) 06/28/18 05:30 ALT 19 U/L (21-72) L 06/28/18 05:30 Alkaline Phosphatase 58 U/L (38-126) 06/28/18 05:30 Total Protein 6.7 G/DL (6.3-8.2) 06/28/18 05:30 Albumin 3.9 g/dL (3.5-5.0) 06/28/18 05:30 Globulin 2.8 gm/dL (2.2-3.9) 06/28/18 05:30 Albumin/Globulin Ratio 1.4 (1.0-2.1) 06/28/18 05:30 Lipase 32 U/L (23-300) 06/27/18 15:30 Venous Blood Potassium 3.4 mmol/L (3.6-5.2) L 06/27/18 19:26 Discharge Exam - Head Exam Head Exam: ATRAUMATIC, NORMAL INSPECTION, NORMOCEPHALIC Discharge Plan - Discharge Medications Prescriptions: Acetaminophen [Tylenol 325mg tab] 650 mg PO Q4 PRN #60 tab PRN Reason: Pain, Mild (1-3) - Follow Up Plan Condition: FAIR Disposition: HOME/ ROUTINE Instructions: Appendectomy, Laparoscopic Surgery (DC) Additional Instructions: Please call Dr. Lu's office for a follow up appointment in 1-2 weeks You may return to work in 3 weeks- contact Dr. Lu's office to obtain any paperwork needed for your job No heavy lifting over 20lbs for 4-6 weeks You have special glue over your incision sites, do not remove it. It will fall off on it's own. Ok to shower Do not sit in water, hot tub, or go swimming until the glue has fallen off Ok to resume normal diet Use Tylenol 650mg every six hours then 3 hours after, use Ibuprofen 600mg every 6 hours (with food) so you take a medicine every 3 hours while awake. Referrals: Devyn Lu MD [Staff Provider] -
--- NOTE | 2018-07-03 18:25 | OP ---
Copied To: Devyn Lu MD Attending MD: Devyn Lu MD PROCEDURE DATE: 06/27/2018 OPERATION PERFORMED: Laparoscopic appendectomy SURGEON: Devyn Lu MD MEDICINE AIDE: Carey Grey DO ANESTHESIA: General. ANESTHESIA ADMINISTERED BY: Ricardo Thomas MD PREOPERATIVE DIAGNOSIS: Acute appendicitis. POSTOPERATIVE DIAGNOSIS: Acute appendicitis. OPERATIVE FINDINGS: Appendicitis. ESTIMATED BLOOD LOSS: Minimal. DESCRIPTION OF PROCEDURE: The patient was taken to the operating room and placed supine on the operating room table. After induction of general anesthesia, a Yousif catheter was placed to decompress the bladder and the abdomen was prepped and draped in the standard surgical fashion. A Veress needle was inserted into the abdomen and the abdomen was insufflated. Once the abdomen was insufflated, a 5-mm trocar was placed through the umbilicus and a diagnostic laparoscopy was performed. The diagnostic laparoscopy revealed inflammation in the right lower quadrant. The patient was then placed into the Trendelenburg and left side down position, and a 5 mm suprapubic trocar as well as a 12 mm left-sided trocar were placed under direct vision. The appendix was then found at the base of the cecum, grasped, and pulled upwards. A window was made in the mesoappendix using the [place] dissector. Once the window was made in the mesoappendix, the Endo-HUDSON was fired across the appendix and the base of the appendix and cecum were severed. A second firing of the Endo-HUDSON using a vascular load was used to fire across the mesoappendix. Once the mesoappendix was severed, the appendix was placed into an EndoCatch bag. The patient then returned to the flat position. The area was inspected for hemostasis and there was no evidence of bleeding. The right lower quadrant was copiously irrigated and the irrigant was removed. The appendix was then removed via the 12 mm trocar site and the 12 mm trocar and the 5-mm trocars were removed under direct vision. The fascia of the 12 mm trocar site was reapproximated using #0 Vicryl and the skin incisions were closed using #4-0 Monocryl. The patient was then awakened from general anesthesia. The Yousif catheter was removed. Sponges, instruments, and needle counts were all correct at the end of the case. Devyn Lu MD
== END 2018-06-28 15:23 | disposition home or self-care (01) ==
LOC: H.ER 14:56 → UNDOADMIN 19:24 → H.SDS 19:24 → H.ERHOLD 19:24 → H.MEDSURG1 23:08 → H.SDS 06-28 15:23 → UNDODISIN 06-28 15:23
PROVIDERS: ATTEND Internal Medicine
PROC: 0DTJ4ZZ Resection of Appendix, Percutaneous Endoscopic Approach (ICD-10-PCS; principal; 2018-06-27 20:30)
DX: K35.80 Unspecified acute appendicitis (principal)
CPT/HCPCS: 36415; 44970; 74177; 80053; 82803; 83690; 83735; 84100; 85025; 85610; 85730; 87040; 88304; 96374; 99283; J0330; J1885; J2250; J2405; J2543; J2704; J2710; J2765; J3010; J3480; J7030; J7120; Q9966; Q9967